=== PATIENT | female | born 1995 | race Caucasian/White ===

== ENCOUNTER 2025-02-24 19:40 | Emergency (ER) | payer OTHER, SELFPAY ==
[2025-02-24 19:41] VITALS: BMI 24.8
[2025-02-24 20:09] VITALS: BP 120/79; PULSE 76; RESP 18; TEMP 36.7; O2SAT 98
--- NOTE | 2025-02-24 20:17 | XR_ITS ---
Examination: CT maxillofacial, without intravenous contrast. 2-D sagittal reconstructions. 3-D reconstructions. Date and time of exam:February 24, 20251 hrs. Indications: Left jaw 2 days, unable to eat CTDI: vol (mGy):14.7 DLP: (mGycm):255 Technique: Multiple axial images of maxillofacial region, 3.0 mm slice thickness. 2-D sagittal and coronal reconstructions. 3-D reconstructions. Low dose protocols were performed. One or more of the following dose reduction techniques were used; automated exposure control, adjustment of the mA and/or KV according to patient size, use of iterative reconstruction technique. Findings: Mandible intact No temporomandibular joint dislocation Maxilla nasal bones intact No depression zygomatic arches Impression: Mandible is intact No dislocations at the temporomandibular joints MRI temporomandibular joints without contrast follow-up would best assess for displaced temporomandibular joint menisci causing joint locking No the optic globes exhibit symmetry.
[2025-02-24] MEDS: CYCLObenzaPRINE 5 MG TABLET PO (20:49)
--- NOTE | 2025-02-24 23:20 | PD.EDDENTL ---
ED Dental RME/HPI General Chief complaint: Dental/Oral/Throat Stated complaint: LEFT SIDE JAW PAIN, LEFT WRIST PAIN Time Seen by Provider: 02/24/25 20:16 Arrival date/time: 02/24/25 19:40 29F with no significant PMH presents to ED with several days of worsening L jaw pain and inability to completely open or close jaw. Patient states it feels like her jaw is not aligned. Patient chews gum a lot but this has never happened to this degree before. Patient denies recent injury and is UTD on tetanus. Patient denies dental pain, URI symptoms, and fevers/chills. Limitations: no limitations Related Data Home Medications ?Medication ?Instructions ?Recorded ?Confirmed desogestrel 0.15 mg-ethinyl 1 tab PO QDAY 09/21/23 09/22/23 estradiol 0.03 mg tablet (Enskyce) Allergies Allergy/AdvReac Type Severity Reaction Status Date / Time No Known Allergies Allergy Verified 09/22/23 07:44 Review of Systems Review of Systems Systems Reviewed: All systems reviewed, normal except as documented Constitutional Constitutional: Reports system reviewed and no additional complaints, except as documented, Denies fever(s) and Denies headache(s) ENT Ears, Nose, Mouth, and Throat: Denies disequilibrium and Denies headache(s) Cardiovascular Cardiovascular: Reports system reviewed and no additional complaints, except as documented, Denies chest pain and Denies dyspnea Respiratory Respiratory: Reports system reviewed and no additional complaints, except as documented, Denies cough and Denies dyspnea Gastrointestinal Gastrointestinal: Reports system reviewed and no additional complaints, except as documented, Denies abdominal pain, Denies nausea and Denies vomiting Musculoskeletal Musculoskeletal: Reports as per HPI and Reports arthralgias Neurologic Neurologic: Reports system reviewed and no additional complaints, except as documented, Denies confusion, Denies disequilibrium and Denies headache(s) Psychiatric Psychiatric: Denies confusion Past Medical History Past Medical History NEUROLOGIC: Negative Neurological Disorders or Seizures CARDIAC: Negative Cardiac Disorders or Congestive Heart Failure RESPIRATORY: Negative Chronic Obstructive Pulmonary Disease (COPD) GASTROINTESTINAL: Negative Gastrointestinal Disorders GENITOURINARY: Negative Genitourinary Disorders or Renal Disease REPRODUCTIVE: Negative Pelvic Inflammatory Disease or Previous Pregnancies MUSCULOSKELETAL: Negative Musculoskeletal Disorders ENDOCRINE: Negative Endocrine Disorders, Diabetes Mellitus Type 1 or Diabetes Mellitus Type 2 HEMATOLOGIC: Negative Blood Disorders OTHER HISTORY: Positive Anesthesia Reactions (PER PATIENT TAKES ALOT OF MEDICATION TO SEDATE) and Chicken Pox; Negative Falls, Blood Transfusions, MRSA or Cancer Family History FAMILY HISTORY: Positive Family Cancer (MOTHER--- RENAL- COLON CA) Social History SMOKING STATUS: Never smoker ED Exam General Limitations: Present no limitations General appearance: Present alert and in no apparent distress Head Head exam: Present atraumatic Eye Eye exam: Present normal appearance, PERRL and EOMI ENT ENT exam: Present normal exam, normal oropharynx and mucous membranes moist Neck Neck exam: Present normal inspection, full ROM and trachea midline Chest Chest inspection: Present normal inspection and symmetric chest wall rise Respiratory Respiratory exam: Present normal lung sounds bilaterally Cardiovascular Cardiovascular exam: Present regular rate, normal rhythm and normal heart sounds Abdominal Exam Abdominal exam: Present soft and normal bowel sounds Extremities Exam Extremities exam: Present normal inspection and full ROM Back Exam Back exam: Present normal inspection and full ROM Neurological Exam Neurological exam: Present alert, oriented X3 and CN II-XII intact Psychiatric Psychiatric exam: Present normal affect and normal mood Skin Skin exam: Present warm, dry, intact and normal color Course Quality Measures none Orders Category Date Time Status noelle wrap [Splint / Immobilizer] STAT Care 02/24/25 20:[address] facial bones wo con Stat Exams 02/24/25 20:17 Completed CYCLObenzaPRINE [Flexeril] Med 02/24/25 20:17 Discontinued 5 mg PO X1 ONE Vital Signs Vital signs: Vital Signs Temperature 98.1 F 02/24/25 20:09 Pulse Rate 76 02/24/25 20:09 Respiratory Rate 18 02/24/25 20:09 Blood Pressure 120/79 02/24/25 20:09 Pulse Oximetry (%) 98 02/24/25 20:09 Oxygen Delivery Method Room Air 02/24/25 20:09 O2 at 98% on RA and WNLs Dental / Oral MDM Narrative MDM Narrative:: 29F with no significant PMH presents to ED with several days of worsening L jaw pain and inability to completely open or close jaw. Patient states it feels like her jaw is not aligned. Patient chews gum a lot but this has never happened to this degree before. Patient denies recent injury and is UTD on tetanus. Patient denies dental pain, URI symptoms, and fevers/chills. Physical exam reveals no obvious deformity in face. Patient is unable to fully open jaw. Patient appears to be able to close jaw, but she states her L-sided teeth don't touch when she closes mouth. ENT otherwise clear. Patient is afebrile, calm, and alert. CT no obvious abnormalities. Muscle relaxer did not help. Patient signed AMA because she didn't want to wait for [facility] consult. Patient data External records reviewed:: [facility] previous records Clinical information provided by:: patient Social determinants that could affect healthcare access:: none Patient has the following chronic illnesses:: none How is presenting disease/condition affected by chronic disease/condition?: no chronic disease Evaluation data The following diagnostics were reviewed and interpreted by me:: radiology exam(s) Lab and/or radiology exams considered but not ordered:: ordered Interpretation Summary: above Medications / Prescriptions Medications or Prescriptions considered but not ordered:: ordered Medication administrations:: Medication Administration History Discontinued Medications Cyclobenzaprine HCl (Cyclobenzaprine 5 Mg Tablet) 5 mg PO X1 ONE Stop: 02/24/25 20:18 Last Admin: 02/24/25 20:49 Dose: 5 mg Documented By: MC above Consultations Consultation(s) initiated? (list below): No Diagnosis Dental Differential Diagnosis: gingival abscess, dental caries, toothache, dental abscess, fracture of tooth, aphthous ulcer and other (lockjaw, trismus, disorder of L TMJ) Most likely diagnosis given after review of the tests above:: disorder of L TMJ Admission Indicated Admission indicated?: not indicated Admission Request Was there a request for admission?: No Disposition Plan Disposition Plan: other (specify) (AMA'd) Discharge Plan Plan Patient Disposition: Left Against Medical Advice Prescriptions/Referrals Prescriptions/Med Rec: No Action desogestrel-ethinyl estradiol [Enskyce] 0.15-0.03 mg tablet 1 tab PO QDAY Patient Comments: TAKE 1 TABLET BY MOUTH EVERY DAY Referrals: Amy Alston NP [Primary Care Provider] - In 1 week Problem List 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
--- NOTE | 2025-02-25 01:21 | PC.NURSE ---
Patient left AMA at 0108, patient stated she did not want to wait any longer, this instructional writer educated patient on risks of leaving AMA including , patient and patient spuse verbalized understanding. Encouraged patient to return to ED at anytime and follow up with PCP.
== END 2025-02-25 01:08 | disposition left against medical advice (07) ==
PROVIDERS: Emergency Provider Emergency Medicine; PCP Registered Nurse
DX: M26.602 Left temporomandibular joint disorder, unspecified (principal)
CPT/HCPCS: 70486; 99284; A9270